=== PATIENT | female | born 1995 | race Caucasian/White ===

== ENCOUNTER 2017-09-21 19:10 | Emergency (ER) | payer BC ==
[~2017-09-21] VITALS: Ht 154.9 cm; Wt 63.5 kg
[~2017-09-21 19:10] MED LIST: CLARITIN10 MG; IBUPROFEN 600600 M1 PO; NAPROSYN500 MG PO; NORCO 5-325 TA1 EACH PO; VALIUM2 MG PO
[2017-09-21 19:20] VITALS: BP 125/72
[2017-09-21] MEDS ORDERED: FLEXERIL PO (19:31)
== END 2017-09-21 19:55 | disposition home or self-care (01) ==
LOC: ER 19:10
DX: S80.02XA Contusion of left knee, initial encounter (principal); V89.2XXA Person injured in unspecified motor-vehicle accident, traffic, initial encounter; Y93.I9 Activity, other involving external motion; Y92.89 Other specified places as the place of occurrence of the external cause; Y99.8 Other external cause status